=== PATIENT | male | born 1990 | race Caucasian/White ===

== ENCOUNTER 2018-01-02 18:25 | Emergency (ER) | payer SELFPAY ==
[~2018-01-02] VITALS: Ht 180.3 cm; Wt 120.2 kg
[2018-01-02 18:34] VITALS: BP 147/77
[2018-01-02] MEDS ORDERED: IBUPROFEN 800 MG TAB PO ONE (21:45)
[2018-01-02 22:21] VITALS: BP 147/77
== END 2018-01-02 22:20 | disposition home or self-care (01) ==
LOC: MED 18:25
DX: M94.0 Chondrocostal junction syndrome [Tietze] (principal)
CPT/HCPCS: 71046; 93005; 99284

== ENCOUNTER 2018-08-02 18:23 | Emergency (ER) | payer MEDICAID ==
[~2018-08-02] VITALS: Ht 175.3 cm; Wt 130.6 kg
[2018-08-02 18:33] VITALS: BP 144/86
--- NOTE | 2018-08-02 18:40 | NUR ---
WAIT IN LOBBY
--- NOTE | 2018-08-02 18:50 | NUR ---
TO BED # 09 AMBULATORY
--- NOTE | 2018-08-02 19:28 | NUR ---
PT TO ED WITH C/O COUGH LASTING 1 WEEK, PT REPORTING PAIN UPON COUGHING. LUNG SOUNDS CLEAR TO ASCULTATION. NO OBVIOUS DISTRESS NOTED. PT PLACED INTO BED, TONIE KELLY.
[2018-08-02 20:10] VITALS: BP 144/86
--- NOTE | 2018-08-02 20:10 | NUR ---
PATIENT ELOPED FROM FACILITY. DISCHARGE INSTRUCTIONS NOT GIVEN TO PATIENT. DR. HUANG NOTIFIED.
== END 2018-08-02 20:10 | disposition left against medical advice (07) ==
LOC: MED 18:23
DX: J02.9 Acute pharyngitis, unspecified (principal); Z53.21 Procedure and treatment not carried out due to patient leaving prior to being seen by health care provider
CPT/HCPCS: 71045; 99281